=== PATIENT | female | born 1985 | race Caucasian/White ===

== ENCOUNTER 2016-12-09 16:13 | Inpatient (IN) ==
[2016-12-09] MEDS ORDERED: ONDANSETRON 4 MG/2 ML VIAL IV PRN ×2 (16:29→21:29)
[2016-12-09] MEDS ORDERED: LACTATED RINGERS 250 ML IV ONE (16:29)
[2016-12-09] MEDS ORDERED: FAMOTIDINE 20 MG/2 ML VIAL IV SCH (16:30)
[2016-12-09] MEDS ORDERED: DINOPROSTONE VAG GEL 10 MG SYRINGE VAG ONE (16:36)
[2016-12-09] MEDS: LACTATED RINGERS 1,000 ML IV SCH ×3 (17:11→20:00)
[2016-12-09] MEDS: MEPERIDINE 50 MG/1 ML VIAL IV PRN ×2 (17:13→21:30)
[2016-12-09] MEDS ORDERED: diphenhydrAMINE 50 MG/1 ML VIAL IV PRN ×2 (19:14)
[2016-12-09] MEDS ORDERED: PROMETHAZINE 25 MG/1 ML VIAL IM ONE (19:14)
[2016-12-09] MEDS ORDERED: ePHEDrine 50 MG/ML AMP IV PRN (19:14)
[2016-12-09] MEDS ORDERED: fentaNYL 2 MCG/ROPIV 0.2% EPID 150 ML EPIDURAL SCH (19:14)
[2016-12-09] MEDS ORDERED: hydrOXYzine HCL 25 MG/1 ML VIAL IM PRN (19:14)
[2016-12-09] MEDS ORDERED: CITRIC ACID/SODIUM CITRATE 30 ML UDCUP ONE (19:20)
[2016-12-09] MEDS ORDERED: CITRIC ACID/SODIUM CITRATE 30 ML UDCUP PO ONE (19:23)
[2016-12-09 19:28] LABS: Basophils # 0.1 10*3/uL (0.0-0.2); Basophils % 0.3 % (0.0-0.8); Eosinophils # 0.1 10*3/uL (0.0-0.87); Eosinophils % 0.4 % (0.00-10.9); Hematocrit 35.8 VOL% (35.7-47.0); Hemoglobin 11.4 GM/DL (12.0-16.0); Immature Granulocytes % 0.4 %; Immature Granulocytes Absolute 0.06 #; Lymphocytes # 2.2 10*3/uL (1.4-4.0); Lymphocytes % 14.2 % (21.3-54.2); Mean Corpuscular HGB Conc 31.8 GM/DL (32-36); Mean Corpuscular Hemoglobin 26 PG (27-34); Mean Corpuscular Volume 82.9 FL (87-102); Mean Platelet Volume 10.9 FL (9.6-12.0); Monocytes # 1.2 10*3/uL (0.11-0.8); Monocytes % 7.7 % (1.7-12.7); Neutrophils # 11.9 10*3/uL (1.4-7.4); Platelet Count 211 10*3/uL (130-400); Red Blood Count 4.32 10*6/uL (3.8-5.5); Red Cell Distribution Width 13.5 % (9.3-17.3); White Blood Count 15.5 10*3/uL (4.5-13.71)
--- NOTE | 2016-12-09 19:30 | History and Physical Update ---
History and Physical Update - Dictation Physical: refer to scanned H&P - Physical Exam Mental Status: alert and oriented Heart: regular rate and rhythm Lung: clear to auscultation Abdomen: within normal limits Vitals: within normal limits History and Physical Changes: Pt seen in office this morning for routine obv at 36 wks. She was 3-4 cm dilated. She called the office after noon and was concerned because she had been rudy regularly since her visit. Upon return to office she was 5 cm with bulging BOW. She was sent to L&D for r/o labor. Despite IVF's and IV sedation pt continues rudy every 2-3 minutes. Cervix just now was 6-7 cm with bulging BOW. Amniotomy was performed with large amt of clear fluid returned. FHTs are Category 1.
[2016-12-09] MEDS ORDERED: LIDOCAINE 1% 50 ML VIAL ONE (21:09)
[2016-12-09] MEDS ORDERED: OXYTOCIN/LR 20 UNIT/1,000 ML BAG IV ONE ×2 (21:09→21:29)
[2016-12-09] MEDS ORDERED: BENZOCAINE 20%/MENTHOL 0.5% SPRAY 56 GM CAN TOP PRN (21:29)
[2016-12-09] MEDS ORDERED: HYDROCORTISONE 2.5% RECTAL CREAM 30 GM TUBE TOP PRN (21:29)
[2016-12-09] MEDS ORDERED: LANOLIN 50% CREAM 0.3 OZ TUBE TOP PRN (21:29)
[2016-12-09] MEDS ORDERED: oxyCODONE/ACETAMINOPHEN 5-325 MG TABLET PO PRN ×2 (21:29)
[2016-12-09] MEDS ORDERED: DIPH/TET/ACEL PERT BOOSTER VACCINE 0.5 ML VIAL IM ONE (21:29)
[2016-12-09] MEDS ORDERED: ACETAMINOPHEN 325 MG TABLET PO PRN (21:29)
[2016-12-09] MEDS ORDERED: RHO(D) IMMUNE GLOBULIN 300 MCG SYRINGE IM ONE (21:29)
[2016-12-09] MEDS ORDERED: WITCH HAZEL PADS 100/JAR TOP PRN (21:29)
[2016-12-09] MEDS ORDERED: BISACODYL 10 MG SUPP RECTAL PRN (21:29)
[2016-12-09] MEDS ORDERED: MEASLES/MUMPS/RUBELLA VACCINE 0.5 ML VIAL SUBCUT ONE (21:29)
[2016-12-10] MEDS: IBUPROFEN 800 MG TABLET PO PRN ×3 (03:12→18:41)
[2016-12-10 06:31] LABS: Basophils # 0.1 10*3/uL (0.0-0.2); Basophils % 0.4 % (0.0-0.8); Eosinophils % 0.2 % (0.00-10.9); Hematocrit 30.2 VOL% (35.7-47.0); Hemoglobin 9.7 GM/DL (12.0-16.0); Immature Granulocytes % 0.5 %; Immature Granulocytes Absolute 0.09 #; Lymphocytes # 2.2 10*3/uL (1.4-4.0); Lymphocytes % 13.1 % (21.3-54.2); Mean Corpuscular HGB Conc 32.1 GM/DL (32-36); Mean Corpuscular Hemoglobin 26 PG (27-34); Mean Corpuscular Volume 80.3 FL (87-102); Mean Platelet Volume 10.6 FL (9.6-12.0); Monocytes # 1.4 10*3/uL (0.11-0.8); Monocytes % 8.4 % (1.7-12.7); Neutrophils # 12.8 10*3/uL (1.4-7.4); Neutrophils % 77.4 % (38.7-73.9); Platelet Count 155 10*3/uL (130-400); Red Blood Count 3.76 10*6/uL (3.8-5.5); Red Cell Distribution Width 13.4 % (9.3-17.3); White Blood Count 16.5 10*3/uL (4.5-13.71)
[2016-12-10] MEDS: DOCUSATE SODIUM 100 MG CAPSULE PO SCH ×2 (09:35→21:50)
[2016-12-11] MEDS: DOCUSATE SODIUM 100 MG CAPSULE PO SCH ×2 (09:00→22:00)
[2016-12-11] MEDS ORDERED: SIMETHICONE CHEW 80 MG TABLET PO PRN (11:38)
[2016-12-11] MEDS ORDERED: MAGNESIUM HYDROXIDE SUSP 30 ML UDCUP PO PRN (11:38)
[2016-12-11] MEDS: IBUPROFEN 800 MG TABLET PO PRN ×2 (11:51→22:00)
--- NOTE | 2016-12-11 20:05 | OB/GYN Progress Note ---
Assessment and Plan (1) 36 weeks gestation of Status: Acute Current Visit: Yes (2) labor with delivery Status: Acute Assessment and plan: Routine care. Current Visit: Yes [employer] - PN: Subj Interval history: 12/10/16 visit--PPD#1/2 Doing well but concerned about her baby in NICU for respiratory situation . Exam [employer] - Constitutional Vitals: Vital Signs Temp Pulse Resp BP Pulse Ox 12/11/16 16:00 97.7 F 87 20 110/53 98 12/11/16 11:33 97.6 F 90 20 119/80 98 12/11/16 07:22 97.9 F 81 18 100/55 98 12/11/16 06:00 18 12/11/16 04:00 96.9 F L 84 18 116/74 99 12/11/16 02:00 18 12/11/16 00:00 97.2 F L 89 18 100/51 97 General appearance: normal weight, no acute distress - Head Head exam: Present: normal inspection, normocephalic - Eye Eye exam: Present: EOMI - Respiratory Respiratory exam: Present: clear to auscultation bilaterally - Cardiovascular Cardiovascular exam: Present: regular rate and rhythm - GI/Abdominal GI/Abdominal exam: Present: soft (fundus firm, nontender) - Extremities Exam Extremities exam: Present: normal inspection - Neurological Exam Neurological exam: Present: alert, oriented X3 - Psychiatric Psychiatric exam: Present: normal affect, normal mood - Skin Skin exam: Present: normal color, warm Results - Labs CBC & BMP: 12/10/16 06:00 Lab Results: I have reviewed the past 24 hour labs
--- NOTE | 2016-12-11 20:06 | OB/GYN Progress Note ---
Assessment and Plan (1) 36 weeks gestation of Status: Acute Current Visit: Yes (2) labor with delivery Status: Acute Assessment and plan: Routine care. Current Visit: Yes [employer] - PN: Subj Interval history: 12/11/16 visit: PPD # 1 1/2 Doing well without complaints. Exam [employer] - Constitutional Vitals: Vital Signs Temp Pulse Resp BP Pulse Ox 12/11/16 16:00 97.7 F 87 20 110/53 98 12/11/16 11:33 97.6 F 90 20 119/80 98 12/11/16 07:22 97.9 F 81 18 100/55 98 12/11/16 06:00 18 12/11/16 04:00 96.9 F L 84 18 116/74 99 12/11/16 02:00 18 12/11/16 00:00 97.2 F L 89 18 100/51 97 General appearance: normal weight, no acute distress - Head Head exam: Present: normal inspection, normocephalic - Eye Eye exam: Present: EOMI - Respiratory Respiratory exam: Present: clear to auscultation bilaterally - Cardiovascular Cardiovascular exam: Present: regular rate and rhythm - GI/Abdominal GI/Abdominal exam: Present: soft (fundus firm, nontender) - Extremities Exam Extremities exam: Present: normal inspection - Neurological Exam Neurological exam: Present: alert, oriented X3 - Psychiatric Psychiatric exam: Present: normal affect, normal mood - Skin Skin exam: Present: normal color, warm Results - Labs CBC & BMP: 12/10/16 06:00
--- NOTE | 2016-12-11 20:09 | Discharge Summary ---
Hospital Course - Hospital Course Hospital Course: Admitted for labor at 36 wks. Delivered without complication. Diagnosis - Discharge Diagnosis (1) 36 weeks gestation of Status: Acute (2) labor with delivery Status: Acute Discharge Plan - Discharge Data Disposition: Disch To Home/Self Care Condition at Discharge: Stable Discharge Diet: regular diet Activity: other (pelvic rest x 6 wks) Hygiene: may shower Weight Bearing at Discharge: full weight bearing Driving: no restrictions (if not taking narcotics) Contact your physician if you experience:: fever over 101, Difficulty voiding, Redness or swelling, Nausea/Vomiting, Shortness of breath, Bleeding, pain uncontrolled by pain medications - Discharge Medications New Ibuprofen Tab [Motrin Tab] 800 mg PO Q6H PRN #30 tablet PRN Reason: Pain Moderate (4-7) oxyCODONE/ACETAMINOPHEN 5-325 [Percocet 5-325] 1 tablet PO Q6H PRN #30 tablet PRN Reason: Pain Severe (8-10) No Action oxyCODONE/ACETAMINOPHEN 5-325 [Percocet 5-325] 1 tablet PO Q4H #30 tablet - Follow Up or Referral Follow Up: Lisa Cline DO [Physician] - (6 wks ) - Forms/Instructions Exam - Constitutional Vitals: Period Temp Pulse Resp BP Sys/Norman Pulse Ox Last 24 Hr 96.9 F-97.9 F 81-90 18-20 100-119/51-80 97-99 General appearance: normal weight, no acute distress - Head Head exam: Present: normal inspection, normocephalic - Eye Eye exam: Present: EOMI - Respiratory Respiratory exam: Present: clear to auscultation bilaterally - Cardiovascular Cardiovascular exam: Present: regular rate and rhythm - GI/Abdominal GI/Abdominal exam: Present: soft (fundus firm, nontender) - Extremities Exam Extremities exam: Present: normal inspection - Neurological Exam Neurological exam: Present: alert, oriented X3 - Psychiatric Psychiatric exam: Present: normal affect, normal mood - Skin Skin exam: Present: normal color, warm DS: Provider Date of admission: 12/09/16 16:29 Primary care physician: Kathi Perez, Attending physician on admission: Lisa Cline DO Consults: 12/09/16 16:29 Consult to Anesthesiology [CONS] Routine Consulting Provider: Reason for Anesthesiology: Epidural Consult Comment: Epidural for pain managment 12/09/16 21:29 Consult to Hat Copyist [CONS] Routine Consult Hat Copyist: Breast Feeding Discharging clinician: Lisa Cline DO Expected date of discharge: 12/12/16
[2016-12-12 07:39] VITALS: BP 128/69
[2016-12-12] MEDS: DOCUSATE SODIUM 100 MG CAPSULE PO SCH (08:32)
--- NOTE | 2016-12-12 11:50 | Pathology Report from [facility] ---
ACCESSION # : [id number] PATIENT NAME : Lyn Martell ORDERING DR : AMPARO NAJERA CLINICAL HX: IUP @ 36.1 wks gestatgion, active labor- POST-OP DX: Same SPECIMEN INFO: Placenta GROSS DESCRIPTION: Received fresh labeled with the patient's name and consists of a 623 gram placenta measuring 14.6 x 20.4 x 3.5 cm. membranes are pink -murphy translucent with clotted blood present. The umbilical cord is pericentrally inserted, contains three vessels and is 39.8 cm. surface is blue-paz with area of clotted blood surrounding the site of insertion to the umbilical cord. The maternal surface is hemorrhagic with moderately disrupted cotyledons, clotted blood and scattered areas of calcifications noted. Sectioning shows no abnormalities. Sections submitted: A membranes and cord, B and maternal surfaces. DIAGNOSIS FOR LYN MARTELL: PLACENTA, MEMBRANES, UMBILICAL CORD: Focal placental infarction with dystrophic calcification, mild intervillous blood. Tri-vessel umbilical cord, pericentrally inserted. Membranes with focal acute and chronic inflammation and attached blood. SERVICE DATE: 12/10/2016 REPORT DATE: 12/12/2016 PATHOLOGIST: Kateryna Mueller
[2016-12-12] MEDS: IBUPROFEN 800 MG TABLET PO PRN (13:22)
== END 2016-12-12 13:45 | disposition home or self-care (01) | DRG 775 ==
LOC: N.LDOUT 16:13 → N.LD 16:16 → N.OB 23:05
PROVIDERS: ADMIT Obstetrics & Gynecology; ATTEND Obstetrics & Gynecology

== ENCOUNTER 2018-05-18 15:25 | Observation (INO) ==
[2018-05-18] MEDS ORDERED: ONDANSETRON 4 MG/2 ML VIAL IV STA (15:46)
[2018-05-18] MEDS ORDERED: SODIUM CHLORIDE 0.9% 500 ML IV STA (15:46)
[2018-05-18] MEDS ORDERED: HYDROmorphone 2 MG/1 ML VIAL ONE (16:13)
[2018-05-18] MEDS ORDERED: HYDROmorphone 2 MG/1 ML VIAL IV STA ×2 (16:19→17:21)
[2018-05-18 17:09] LABS: Basophils # 0.1 10*3/uL (0.0-0.2); Basophils % 0.5 % (0.0-0.8); Eosinophils # 0.1 10*3/uL (0.0-0.87); Eosinophils % 0.4 % (0.00-10.9); Hematocrit 36.3 VOL% (35.7-47.0); Hemoglobin 12.5 GM/DL (12.0-16.0); Immature Granulocytes % 0.5 %; Immature Granulocytes Absolute 0.06 #; Lymphocytes # 1.5 10*3/uL (1.4-4.0); Lymphocytes % 11.7 % (21.3-54.2); Mean Corpuscular HGB Conc 34.4 GM/DL (32-36); Mean Corpuscular Hemoglobin 29 PG (27-34); Monocytes # 0.7 10*3/uL (0.11-0.8); Monocytes % 5.6 % (1.7-12.7); Neutrophils # 10.6 10*3/uL (1.4-7.4); Neutrophils % 81.3 % (38.7-73.9); Platelet Count 217 T/CUMM (130-400); Red Blood Count 4.32 MC/CUMM (3.8-5.5); White Blood Count 13.1 T/CUMM (4-12)
[2018-05-18] MEDS ORDERED: ACETAMINOPHEN 325 MG TABLET PO PRN (17:12)
[2018-05-18] MEDS ORDERED: HYDROmorphone 2 MG/1 ML VIAL IV PRN (17:12)
[2018-05-18 17:32] LABS: Albumin 3.3 G/DL (3.4-5.0); Bilirubin,Total 0.7 MG/DL (0.2-1.0); Calcium 8.1 MG/DL (8.5-10.1); Osmolality,Calculated 283.3 MOS/KG (273-304); Potassium 4.1 MMOL/L (3.5-5.1); Total Protein 6.9 G/DL (6.4-8.3)
[2018-05-18] MEDS: PIPERACILLIN/TAZOBACTAM 3,375 MG in SODIUM CHLORIDE 0.9% 100 ML IV SCH (18:19)
[2018-05-18] MEDS: DEXTROSE 5% NACL 0.45% 1,000 ML IV SCH (18:19)
[2018-05-18] MEDS: ONDANSETRON 4 MG/2 ML VIAL IV PRN (18:23)
[2018-05-18 20:28] LABS: Apearance,Urine Slightly Hazy (Clear); Bilirubin,Urine Negative (Negative); Blood, Urine Negative (Negative); Glucose,Urine (UA) Negative (Negative); Ketones,Urine 5 mg/dL (Negative); Mucus,Urine Few /LPF (Occasional); Nitrite,Urine Negative (Negative); Protein,Urine Negative; RBC,Urine 1 /HPF (0-4); Squamous Epithelial Cell,Urine Occasional /HPF (0-10); Urine Color Yellow (Yellow); Urine Specific Gravity 1.023 (1.001-1.035); WBC,Urine 4 /HPF (0-6)
[2018-05-19] MEDS: DEXTROSE 5% NACL 0.45% 1,000 ML IV SCH (01:30)
[2018-05-19] MEDS: PIPERACILLIN/TAZOBACTAM 3,375 MG in SODIUM CHLORIDE 0.9% 100 ML IV SCH ×2 (02:30→12:02)
[2018-05-19] MEDS ORDERED: DIAZEPAM 5 MG TABLET PO ONE (08:00)
[2018-05-19] MEDS ORDERED: FAMOTIDINE 20 MG TABLET PO ONE (08:00)
[2018-05-19] MEDS ORDERED: LIDOCAINE 1%/EPI INJ 20 ML VIAL ONE (08:46)
[2018-05-19] MEDS ORDERED: PANTOPRAZOLE 40 MG TABLET PO SCH (09:00)
[2018-05-19] MEDS ORDERED: TISSUE ADHESIVE 1 EACH APPLICATOR TOP ONE (09:09)
[2018-05-19] MEDS ORDERED: ONDANSETRON 4 MG/2 ML VIAL ONE ×2 (09:59→10:00)
[2018-05-19] MEDS ORDERED: MEPERIDINE 25 MG/1 ML VIAL ONE ×2 (09:59→10:18)
[2018-05-19] MEDS ORDERED: PROPOFOL 200 MG/20 ML VIAL IV ONE (10:00)
[2018-05-19] MEDS ORDERED: LIDOCAINE 1% 5 ML VIAL ONE (10:00)
[2018-05-19] MEDS ORDERED: GLYCOPYRROLATE 0.4 MG/2 ML VIAL ONE (10:00)
[2018-05-19] MEDS ORDERED: DEXAMETHASONE 10 MG/1 ML VIAL ONE (10:00)
[2018-05-19] MEDS: ONDANSETRON 4 MG/2 ML VIAL IV PRN (10:00)
[2018-05-19] MEDS ORDERED: SEVOFLURANE 1 UNIT/15 MINUTE INH ONE (10:00)
[2018-05-19] MEDS: MEPERIDINE 25 MG/1 ML VIAL IV PRN ×2 (10:00→10:20)
[2018-05-19] MEDS ORDERED: KETOROLAC 30 MG/1 ML VIAL ONE (10:00)
[2018-05-19] MEDS ORDERED: fentaNYL 100 MCG/2 ML VIAL ONE (10:00)
[2018-05-19] MEDS ORDERED: diphenhydrAMINE 50 MG/1 ML VIAL IV PRN (10:01)
[2018-05-19] MEDS ORDERED: ACETAMINOPHEN 1,000 MG/100 ML VIAL IV ONE (10:01)
[2018-05-19] MEDS ORDERED: MORPHINE 10 MG/1 ML VIAL IV PRN (10:01)
[2018-05-19] MEDS ORDERED: SUCCINYLCHOLINE 200 MG/10 ML VIAL ONE (10:01)
[2018-05-19] MEDS ORDERED: PROMETHAZINE INJ 25 MG in SODIUM CHLORIDE 0.9% 50 ML IV PRN (10:01)
[2018-05-19] MEDS ORDERED: ONDANSETRON 4 MG/2 ML VIAL IV PRN (10:01)
[2018-05-19] MEDS ORDERED: NEOSTIGMINE 10 MG/10 ML VIAL ONE (10:01)
[2018-05-19] MEDS ORDERED: ROCURONIUM 100 MG/10 ML VIAL IV ONE (10:01)
[2018-05-19 11:01] VITALS: BP 119/69
== END 2018-05-19 14:15 | disposition home or self-care (01) ==
LOC: EDUNIT# → EDBD → N.EDINP 15:25 → N.ED 15:25 → N.EDINP 18:02 → N.2E 18:07
PROVIDERS: ADMIT Surgery; ATTEND Surgery
PROC: LAPCHOL (2018-05-19 08:57)

== ENCOUNTER 2018-05-25 12:58 | Observation (INO) ==
[2018-05-27 15:48] VITALS: BP 106/67
== END 2018-05-27 18:20 | disposition home or self-care (01) ==
LOC: N.EDINP 12:58 → N.ED 12:58 → N.3E 16:45 → N.CC 22:19 → N.4E 05-27 09:37
PROVIDERS: ADMIT Surgery; ATTEND Surgery